=== PATIENT | female | born 1985 | race Caucasian/White ===

== ENCOUNTER 2017-08-01 16:26 | Inpatient (IN) | payer OTHER ==
[~2017-08-01] VITALS: Ht 175.3 cm; Wt 119.7 kg
[2017-08-01] MEDS ORDERED: PREN-380 PO (16:52)
[2017-08-01] MEDS ORDERED: NALBUPHINE 10 MG/ML AMP IVP PRN (16:55)
[2017-08-01] MEDS ORDERED: OXYTOCIN 20 UNITS in LACTATED RINGERS 1,000 ML IV SCH (16:55)
[2017-08-01] MEDS ORDERED: OXYTOCIN 10 UNITS/ML VIAL IM SCH (16:55)
[2017-08-01] MEDS ORDERED: LACTATED RINGERS 1,000 ML IV SCH (16:55)
[2017-08-01] MEDS ORDERED: PROMETHAZINE 25 MG/ML VIAL IM PRN (16:55)
[2017-08-01] MEDS ORDERED: MISOPROSTOL 25 MCG TAB VG PRN (16:55)
[2017-08-01 17:15] VITALS: BP 138/79
[2017-08-01 18:17] LABS: BASOPHILS # (AUTO) 0.2 K/uL (0.00-0.22); BASOPHILS % (AUTO) 1.4 % (0.0-2.0); EOSINOPHILS # (AUTO) 0.1 K/uL (0-0.4); EOSINOPHILS % (AUTO) 0.6 % (0.0-4.0); HEMATOCRIT 40.6 % (36-48); HEMOGLOBIN 13.8 g/dL (12.0-16.0); LYMPHOCYTES # (AUTO) 2.6 K/uL (2.5-16.5); MEAN CORPUSCULAR HEMOGLOBIN 30 pg (27-31); MEAN CORPUSCULAR HGB CONC 34 g/dL (33-37); MEAN CORPUSCULAR VOLUME 87.9 fL (80-94); MONOCYTES % (AUTO) 8.2 % (1.7-9.3); NEUTROPHILS # (AUTO) 8.6 K/uL (1.8-7.7); NEUTROPHILS % (AUTO) 68.8 % (42.2-75.2); PLATELET COUNT (AUTO) 284 K/uL (140-450); RED BLOOD CELL COUNT(AUTO) 4.62 MIL/uL (4.20-5.40); RED CELL DISTRIBUTION WIDTH 13.3 % (11.6-13.7); WHITE BLOOD COUNT (AUTO) 12.5 K/uL (4.8-10.8)
[2017-08-01 18:40] LABS: APPEARANCE,URINE CLEAR (CLEAR); BILIRUBIN,URINE NEGATIVE (NEGATIVE); BLOOD, URINE NEGATIVE (NEGATIVE); LEUKOCYTE ESTERASE ,URINE NEGATIVE (NEGATIVE); NITRITE, URINE NEGATIVE (NEGATIVE); UGLUCOSE NEGATIVE (NEGATIVE)
[2017-08-01 18:56] LABS: ANION GAP 14.5 (8-16); CARBON DIOXIDE 25.3 mmol/L (21-32); POTASSIUM 3.8 mmol/L (3.5-5.1)
[2017-08-01 18:57] LABS: ALBUMIN 2.7 g/dL (3.4-5.0); CREATININE 0.6 mg/dL (0.6-1.3); TOTAL BILIRUBIN 0.3 mg/dL (0.0-1.0)
[2017-08-01 19:39] LABS: COLOR,URINE YELLOW (YELLOW)
[2017-08-02] MEDS ORDERED: BUPIVACAINE 0.125%/NS PREMIX 250 ML ONE (05:56)
[2017-08-02] MEDS ORDERED: BUPIVACAINE 0.125%/NS PREMIX 250 ML EPI SCH (06:20)
[2017-08-02] MEDS ORDERED: NPH (07:12)
[2017-08-02] MEDS ORDERED: HYDROcodone/APAP 5/325 MG 1 TAB TAB PO PRN ×2 (07:30→17:55)
[2017-08-02] MEDS ORDERED: oxyCODONE/APAP 5/325 MG 1 TAB TAB PO PRN ×2 (07:30→17:55)
[2017-08-02] MEDS ORDERED: IBUPROFEN 800 MG TAB PO PRN (07:30)
[2017-08-02] MEDS ORDERED: OXYTOCIN 10 UNITS/ML VIAL IM PRN ×2 (07:30→17:55)
[2017-08-02] MEDS ORDERED: MEASLES, MUMPS, AND RUBELLA 1 VIAL SQVAC PRN ×2 (07:30→17:55)
[2017-08-02] MEDS ORDERED: TEMAZEPAM 15 MG CAP PO PRN ×2 (07:30→17:55)
[2017-08-02] MEDS ORDERED: METHYLERGONOVINE 0.2 MG/ML AMP IM PRN ×2 (07:30→17:55)
[2017-08-02] MEDS ORDERED: BENZOCAINE/MENTHOL 20%-0.5% 60 GM CAN TP PRN ×2 (07:30→17:55)
[2017-08-02] MEDS ORDERED: AMPICILLIN 2,000 MG in NACL 0.9% 100 ML IV SCH (10:00)
[2017-08-02] MEDS ORDERED: AMPICILLIN 2,000 MG VIAL ONE (10:06)
[2017-08-02] MEDS ORDERED: AMPICILLIN 1,000 MG in NACL 0.9% 50 ML IV SCH (14:00)
[2017-08-02] MEDS ORDERED: AMPICILLIN 1,000 MG VIAL ONE (14:19)
[2017-08-02] MEDS ORDERED: OXYTOCIN 10 UNITS/ML VIAL ONE (17:32)
[2017-08-02] MEDS ORDERED: SODIUM PHOSPHATE 118 ML ENEM RC PRN (17:55)
[2017-08-02] MEDS ORDERED: METHYLERGONOVINE 0.2 MG TAB PO PRN (17:55)
[2017-08-02] MEDS ORDERED: DOCUSATE SOD/SENNA 50/8.6 MG 1 TAB PO SCH ×2 (21:00)
[2017-08-03 06:41] LABS: HEMATOCRIT 37.4 % (36-48); HEMOGLOBIN 12.7 g/dL (12.0-16.0)
[2017-08-03] MEDS ORDERED: DOCUSATE SOD/SENNA 50/8.6 MG 1 TAB PO SCH (21:00)
[2017-08-04] MEDS ORDERED: IBUP-1842 PO (08:05)
== END 2017-08-04 15:45 | disposition home or self-care (01) | DRG 560 ==
LOC: MFCC 16:26
PROVIDERS: ADMIT Obstetrics & Gynecology; ATTEND Obstetrics & Gynecology
PROC: 10E0XZZ Delivery of Products of Conception, External Approach (ICD-10-PCS; principal; 2017-08-02)
PROC: 10907ZC Drainage of Amniotic Fluid, Therapeutic from Products of Conception, Via Natural or Artificial Opening (ICD-10-PCS; 2017-08-02)
PROC: 3E033VJ Introduction of Other Hormone into Peripheral Vein, Percutaneous Approach (ICD-10-PCS; 2017-08-02)
PROC: 00HU33Z Insertion of Infusion Device into Spinal Canal, Percutaneous Approach (ICD-10-PCS; 2017-08-02)
PROC: 3E0R3BZ Introduction of Anesthetic Agent into Spinal Canal, Percutaneous Approach (ICD-10-PCS; 2017-08-02)
DX: O24.424 Gestational diabetes mellitus in childbirth, insulin controlled (principal); E66.9 Obesity, unspecified; O69.81X0 Labor and delivery complicated by cord around neck, without compression, not applicable or unspecified; O99.214 Obesity complicating childbirth; Z68.39 Body mass index [BMI] 39.0-39.9, adult; Z3A.39 39 weeks gestation of pregnancy; Z37.0 Single live birth; Z28.21 Immunization not carried out because of patient refusal; O14.94 Unspecified pre-eclampsia, complicating childbirth; O13.4 Gestational [pregnancy-induced] hypertension without significant proteinuria, complicating childbirth
CPT/HCPCS: 36415; 80053; 81003; 82948; 85018; 85025; 86886; 86900; 86901; J0290; J2210; J2590; J3490; J7120